=== PATIENT | female | born 1950 | race African-American/Black ===

== ENCOUNTER 2017-08-11 08:59 | Outpatient (CLI) | payer MEDICARE ==
--- NOTE | 2017-08-11 12:05 | CT ---
CT THORAX WITH IV CONTRAST: CT ABDOMEN AND PELVIS WITH IV CONTRAST: 08/11/2017 HISTORY: Non-Hodgkin's lymphoma. Left-sided abdominal pain. This is a follow-up evaluation. COMPARISON: PET CT examinations on 05/25/2016 and 12/23/2015, as well as a CT angiogram thorax on 11/26/2008. FINDINGS: THORAX: There are two pleural-based, 4 mm pulmonary nodules within the anterolateral aspect of the r ight upper lobe, with a 6 mm pulmonary nodule in the right lower lobe and very tiny, less than 4 mm, pulmonary nodules within the right middle lobe and in the left upper lobe. These pulmonary nodules w ere seen on a prior PET CT scan examination, as well as on the CT angiogram thorax on 11/26/2008, and have not increased in size. The instability since the study in 2008 suggests benign findings. No n ew pulmonary nodule or mass is appreciated. There is atelectasis at the posteromedial right lower lobe. The thoracic aorta is normal in caliber with vascular calcification seen in the aortic arch. The heart is mildly enlarged. There is no evidence of lymphadenopathy. Degenerative changes are seen in the spine. No lytic or sclerotic osseous lesions are present. ABDOMEN AND PELVIS: There is persistent inflammatory stranding seen within the central mesentery, wi th a few nonenlarged lymph nodes identified. There is a larger lymph node seen within the central me sentery, to the right of midline, measuring 2.3 cm, which has decreased in size, compared to PET CT o n 05/25/2016, when this measured 2.7 cm. This enlarged lymph node measured 3.6 cm on the prior study of 12/23/2015. No new enlarged lymph nodes are seen. There are stable, mildly prominent left peria ortic lymph nodes again present, stable compared to the studies in 2016 and 2015. Post cholecystectomy changes are noted. There is stable atrophy of the left kidney. The liver, spleen, pancreas, bilateral adrenal glands, and urinary bladder demonstrate a normal CT ap pearance. There is decreased attenuation seen centrally, within the uterus, which could be related to fluid in the endometrial canal. This would be abnormal in a patient of this age. Pelvic ultrasound may be he lpful for further evaluation. A moderate amount of retained fecal material is seen within the rectum. No enlarged pelvic lymph nodes are appreciated. No other interval change. IMPRESSION: 1. Continued interval decrease in size of the enlarged central mesenteric lymph node. There are mil dly prominent left periaortic and retrocrural lymph nodes again present, but these are also stable wh en compared to prior studies in 2017 and 2016. No new enlarged lymph nodes are seen. 2. Stable mild stranding in the central mesentery. 3. Mild cardiomegaly. 4. Stable pleural-based pulmonary nodules, right upper lobe, with stable pulmonary nodules in the ri ght lower lobe and left upper lobe. 5. Atrophy, left kidney. 6. Post cholecystectomy changes. 7. Decreased attenuation in the central uterus, which is nonspecific. This appeared to have been pr esent on the PET CT exam; however, no abnormal uptake was seen in this region. However, if this does represent fluid in the endometrial canal, this would be abnormal in a patient of this age. POS: [facility]
== END 2017-08-11 09:00 | disposition home or self-care (01) ==
LOC: CT 08:59
PROVIDERS: ATTEND Internal Medicine Hematology & Oncology
DX: C85.90 Non-Hodgkin lymphoma, unspecified, unspecified site (principal); N26.1 Atrophy of kidney (terminal); I51.7 Cardiomegaly; R91.8 Other nonspecific abnormal finding of lung field; Z90.49 Acquired absence of other specified parts of digestive tract
CPT/HCPCS: 71260; 74177; 82565

== ENCOUNTER 2017-09-01 08:43 | Outpatient (CLI) | payer MEDICARE | END 2017-09-01 08:44 | disposition home or self-care (01) | LOC: BICMAMMO 08:43 | PROVIDERS: ATTEND Family Medicine | DX: Z12.31 Encounter for screening mammogram for malignant neoplasm of breast (principal); Z85.72 Personal history of non-Hodgkin lymphomas | CPT/HCPCS: 77063; 77067 ==

== ENCOUNTER 2018-01-11 08:40 | Outpatient (CLI) | payer MEDICARE | END 2018-01-11 08:41 | disposition home or self-care (01) | LOC: BICCT 08:40 | PROVIDERS: ATTEND Internal Medicine Pulmonary Disease | DX: R91.8 Other nonspecific abnormal finding of lung field (principal) | CPT/HCPCS: 71260 ==

== ENCOUNTER 2018-02-09 12:44 | Outpatient (CLI) | payer MEDICARE ==
[~2018-02-09 12:44] MED LIST: Iopamidol 370 76% 100 ML VIAL ONE
--- NOTE | 2018-02-09 18:23 | CT ---
ABDOMEN CT WITHOUT CONTRAST PELVIC CT WITH AND WITHOUT CONTRAST CT ANGIOGRAM OF THE ABDOMEN 02/09/18 COMPARISON: 01/11/18, 08/11/17. HISTORY: Atrophic left kidney. CT angiogram of the descending thoracic aorta and abdominal aorta is performed in the axial plane. Th ree dimensional reformatted images are submitted for interpretation. FINDINGS: ABDOMEN CT: Lung bases are clear. Heart size is normal. No significant pericardial fluid. Liver, spleen, pancreas , and adrenal glands have appropriate arterial phase enhancement. Gallbladder is surgically absent. Scattered nonspecific mildly enlarged mesenteric lymph nodes. There is straightening of the central a bdominal mesentery similar to the previous examination. Stable focal soft tissue density in the centr al abdominal mesentery, once again measuring 2.0 x 1.3 cm. 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 The visualized alimentary canal is unremarkable. 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: The uterus and adnexal structures are unremarkable. No pelvic mass, lymphadenopathy or significant fr ee fluid. A small amount of free fluid is noted. There are no lytic or blastic lesions in the osseous structures. CT ANGIOGRAM: The descending thoracic aorta has the appropriate enhancement and luminal diameter. The celiac artery origin, superior mesenteric artery origin have appropriate enhancement and luminal diameter. There i s calcified plaque with associated mild to moderate stenosis involving the left renal artery ostium. There is decreased enhancement and luminal diameter of the left renal artery in its mid to distal asp ect. Left kidney is atrophic and there is decreased enhancement of the left kidney with respect to th e contralateral side. Nonspecific left perinephric lymph nodes. Bilaterally, no obstructive uropathy. Inferior mesenteric artery origin, aortic bifurcation, are unremarkable. Mild narrowing of the proxim al right common iliac artery due to atherosclerosis. The visualized external and internal iliac arter ies are patent. The visualized bilateral proximal lower extremity arteries are also patent. IMPRESSION: 1. Diminutive/atrophic left kidney. There is a small focus of calcified plaque with resultant mo derate stenosis involving the left renal artery ostium. There is decreased enhancement and luminal di ameter of the visualized left renal artery in its mid to proximal portion. Right renal artery is unre markable. 2. Unremarkable abdominal aorta. 3. Stable stranding of the abdominal mesentery with stable soft tissue attenuation which may rep resent area of scar. POS: [facility]
== END 2018-02-09 12:45 | disposition home or self-care (01) ==
LOC: BICCT 12:44
PROVIDERS: ATTEND Family Medicine
DX: Z13.820 Encounter for screening for osteoporosis (principal); N95.9 Unspecified menopausal and perimenopausal disorder; N26.1 Atrophy of kidney (terminal); M85.852 Other specified disorders of bone density and structure, left thigh; I70.1 Atherosclerosis of renal artery
CPT/HCPCS: 72191; 77080; 82565

== ENCOUNTER 2018-03-13 15:11 | Outpatient (CLI) | payer MEDICARE ==
[~2018-03-13 15:11] MED LIST changes: +Gadobenate Dimeglumine 529 MG/1 ML (20ML VIAL) ONE; -Iopamidol 370 76% 100 ML VIAL ONE
--- NOTE | 2018-03-13 18:21 | MRI ---
MRI LUMBAR SPINE WITH AND WITHOUT GADOLINIUM CONTRAST: Date: 03/13/18 HISTORY: Low back pain with left leg radiculopathy. FINDINGS: Conus medullaris has a normal appearance. Vertebral body heights are maintained. Discogenic end plate changes are most pronounced at the L4-5 level. T12-L1 and L1-2: Mild osteophytosis. The central canal and neural foramina are patent. L2-3: Desiccation of the disc and diffuse posterior disc bulge. Circumferential degenerative changes with mild stenosis of the central canal and each neural foramen. L3-4: Minimal disc bulge. Circumferential degenerative changes with mild stenosis of the central can al and each neural foramen. L4-5: Disc space narrowing. Minimal degenerative spondylolisthesis. Diffuse posterior disc protrusio n with prominent circumferential degenerative changes. Severe stenosis of the central canal and each neural foramen. L5-S1: Minimal disc bulge. Thecal sac is patent. Degenerative changes with mild right and severe lef t foraminal stenoses. IMPRESSION: Degenerative changes lower lumbar spine, including stenoses that are severe at the lowest two levels. Clinical correlation regarding signs and symptoms of central canal stenosis at the L4-5 level and fo raminal stenoses at the lowest two levels is required. POS: [facility]
== END 2018-03-13 15:12 | disposition home or self-care (01) ==
LOC: BICMRI 15:11
PROVIDERS: ATTEND Orthopaedic Surgery
DX: M47.26 Other spondylosis with radiculopathy, lumbar region (principal); M54.42 Lumbago with sciatica, left side; M48.061 Spinal stenosis, lumbar region without neurogenic claudication; M99.83 Other biomechanical lesions of lumbar region
CPT/HCPCS: 72158; 82565; A9579

== ENCOUNTER 2018-04-29 10:17 | Emergency (ER) | payer MEDICARE ==
[2018-04-29] MEDS ORDERED: Ibuprofen 200 MG TAB ONE (11:10)
--- NOTE | 2018-04-29 11:37 | RAD ---
THREE VIEWS LUMBAR SPINE: HISTORY: Lumbar spine pain. History of fall. FINDINGS: AP, lateral, and coned down views of the lumbar spine demonstrate 5 nonrib-bearing lumbar vertebrae. NO evidence of lumbar spine fracture is seen. Disk space height loss is seen at L4-5 and L5-S1. An terior osteophytes are seen involving the L2, L3, L4, and L5 levels. Findings compatible with changes of spondylosis. IMPRESSION: L4-5 and L5-S1 changes of spondylosis with a smaller anterior osteophyte seen at L2 and L3 levels. POS: [facility]
--- NOTE | 2018-04-29 11:39 | RAD ---
THREE VIEWS RIGHT SHOULDER: HISTORY: Right shoulder pain, fall. FINDINGS: AP internally, externally, and scapula-Y views of the right shoulder are obtained. Images demonstrate some degenerative changes seen in the right AC joint. The right shoulder is unremarkable. No evidence of fractures, subluxations, or bony lesions seen. IMPRESSION: Right acromioclavicular joint degenerative changes. Otherwise, unremarkable 3 views right shoulder. POS: [facility]
== END 2018-04-29 11:55 | disposition home or self-care (01) ==
LOC: ERS 10:17
DX: S46.911A Strain of unspecified muscle, fascia and tendon at shoulder and upper arm level, right arm, initial encounter (principal); M54.5 Low back pain; I10 Essential (primary) hypertension; F32.9 Major depressive disorder, single episode, unspecified; Z79.899 Other long term (current) drug therapy; Z79.82 Long term (current) use of aspirin; W19.XXXA Unspecified fall, initial encounter
CPT/HCPCS: 72100

== ENCOUNTER 2018-09-07 11:22 | Outpatient (CLI) | payer MEDICARE ==
--- NOTE | 2018-09-07 15:04 | MMO ---
Bilateral MAMMO Bilat Screen [facility]. CLINICAL HISTORY: Patient is 68 years old and is seen for screening. The patient has no family history of breast cancer. The patient has a history of hodgkin's disease. VIEWS: The views performed were: bilateral craniocaudal with tomosynthesis and bilateral mediolateral oblique with tomosynthesis. FILMS COMPARED: The present examination has been compared to prior imaging studies performed at [facility] on 09/01/2017, and at [facility] on 11/03/2010, 07/31/2014 and 07/27/2016. MAMMOGRAM FINDINGS: There are scattered fibroglandular densities. There are no suspicious masses, suspicious calcifications, or new areas of architectural distortion. IMPRESSION: THERE IS NO MAMMOGRAPHIC EVIDENCE OF MALIGNANCY. A ROUTINE FOLLOW-UP MAMMOGRAM IN 1 YEAR IS RECOMMENDED. THE RESULTS OF THIS EXAM WERE SENT TO THE PATIENT. ACR BI-RADS Category 1 - Negative MAMMOGRAPHY NOTE: 1. A negative mammogram report should not delay a biopsy if a dominant of clinically suspicious mass is present. 2. Approximately 10% to 15% of breast cancers are not detected by mammography. 3. Adenosis and dense breasts may obscure an underlying neoplasm.
== END 2018-09-07 11:23 | disposition home or self-care (01) ==
LOC: BICMAMMO 11:22
PROVIDERS: ATTEND Family Medicine
DX: Z12.31 Encounter for screening mammogram for malignant neoplasm of breast (principal); Z85.71 Personal history of Hodgkin lymphoma
CPT/HCPCS: 77063; 77067

== ENCOUNTER 2018-09-21 10:29 | Outpatient (CLI) | payer MEDICARE ==
[~2018-09-21 10:29] MED LIST changes: -Gadobenate Dimeglumine 529 MG/1 ML (20ML VIAL) ONE; +ISOVUE-370 76%-LOCM 1 ML ONE
--- NOTE | 2018-09-21 11:52 | CT ---
CONTRAST ENHANCED CT IMAGES OF THE ABDOMEN AND PELVIS: HISTORY: Patient with large B-cell lymphoma. COMPARISON: Comparison is made to previous exam from 08/11/2018. FINDINGS: Contrast-enhanced CT images of the abdomen and pelvis obtained after administration of IV and oral co ntrast. Small area of pleural nodular density seen in the right lower lobe. The gallbladder has been surgically removed. The liver is unremarkable. The spleen is unremarkable. The pancreas is unremarkable. Adrenal glands unremarkable. The right kidney is of normal size without evidence of significant masses. The left kidney is atroph ied, unchanged since the previous exam. There are central mesenteric areas of increased signal compatible with possible mesenteric inflammato ry or neoplastic involvement. This is stable and unchanged since the previous exam. The largest mes enteric lymph node noted previously measured approximately 2.3 cm has decreased in size measuring cecilio roximately 1.3 cm. No other significant evidence of lymphadenopathy is seen. No evidence of periaortic lymphadenopathy is seen. Multilevel lumbar changes of spondylosis and spinal stenosis seen. IMPRESSION: 1. Atrophied left kidney. 2. Mesenteric edema with some mildly enlarged mesenteric lymph nodes, the largest having decreased i n size when compared to the previous comparison exam from July 2017. POS: [facility]
== END 2018-09-21 10:30 | disposition home or self-care (01) ==
LOC: BICCT 10:29
PROVIDERS: ATTEND Internal Medicine Hematology & Oncology
DX: C83.38 Diffuse large B-cell lymphoma, lymph nodes of multiple sites (principal); R10.9 Unspecified abdominal pain; N26.1 Atrophy of kidney (terminal); R60.0 Localized edema; R59.0 Localized enlarged lymph nodes
CPT/HCPCS: 74177; 82565; Q9966

== ENCOUNTER 2019-02-14 09:14 | Outpatient (CLI) | payer MEDICARE ==
--- NOTE | 2019-02-14 10:16 | ULT ---
Abdominal ultrasound: 02/14/2019 COMPARISON: None HISTORY: Pain TECHNIQUE: Multiplanar grayscale sonographic imaging of the abdomen obtained. FINDINGS: The pancreas is not well seen secondary to bowel gas. The gallbladder is surgically absent. No focal liver lesion is apparent. The common bile duct measures approximately 5 mm, within normal limits. The right kidney measures 11.6 cm in craniocaudal dimension and demonstrates no evidence for stone, h ydronephrosis, or mass lesion. Left kidney is atrophic, measuring 7.8 cm in craniocaudal dimension. The putty maker documented a hypoechoic lesion within the lateral aspect of the left kidney measuring approximately 2.1 x 1.7 x 1.7 cm. However, no such lesion is seen on a CT of the abdomen and pelvis performed 09/21/2018. This could best be artifactual in nature or could represent a new mass wit hin the left kidney. Recommend follow-up CT of the abdomen with and without IV contrast for further assessment. The spleen measures up to approximately 7.8 cm, within normal limits. IMPRESSION: Possible new hypoechoic lesion within the left kidney. Follow-up CT is advised as teofilo jacobo above.
--- NOTE | 2019-02-14 10:37 | ULT ---
TRANSABDOMINAL TRANSVAGINAL PELVIC ULTRASOUND DATE:: 02/14/2019 12:00 AM CLINICAL HISTORY: History of pelvic pain. COMPARISON: April 11, 2003 TECHNIQUE: Grayscale, color Doppler and spectral Doppler images were obtained of the pelvis see a tra nsabdominal transvaginal approach Uterus: Size: 6.6 x 3.6 x 4.2 Mass: No uterine mass is demonstrated. Cervix: Within normal limits Endometrium: There is marked thickening of the endometrium with heterogeneity. Endometrial Thickness: 15 mm Ovaries: Size: right measures 2.5 x 1.0 x 2.1 cm; left measures 2.0 x 1.1 x 1.1 cm Mass: None. Flow: Normal Cul-de-sac: No free fluid IMPRESSION: Abnormal thickening of the endometrial stripe with prominent heterogeneity of the endometrial tissues . Findings may reflect hyperplasia, polyposis or carcinoma. Recommend consideration for endometrial sampling.
== END 2019-02-14 09:15 | disposition home or self-care (01) ==
LOC: BICULT 09:14
PROVIDERS: ATTEND Family Medicine
DX: R10.2 Pelvic and perineal pain (principal); R93.89 Abnormal findings on diagnostic imaging of other specified body structures
CPT/HCPCS: 76700; 76856

== ENCOUNTER 2019-03-02 08:58 | Outpatient (CLI) | payer MEDICARE ==
--- NOTE | 2019-03-02 09:52 | ULT ---
US Abdominal History: Abdominal pain Comparison: Ultrasound February 14, 2019 Findings: Real-time grayscale and color evaluation of the abdomen was performed. Visualized portion of the aorta, IVC, and pancreas are unremarkable. No hepatic mass. Prior cholecystectomy. Common bile duct measures 5 mm, normal. Antegrade flow in the portal vein. Mild diffuse increased hepatic echotexture. Right kidney measures 12 x 7 x 6.2 cm without mass hydronephrosis or abnormal calcifications. There i s a mass in the posterior interpolar cortex left kidney measuring up to 2 cm in size which on some views is not definitively a cyst. Left kidney is relatively small measuring 8.3 x 3.2 x 3.6 cm. Spleen measures 7.8 cm in length. Impression: 2 cm mass of the left kidney which on some of the images not definitively a cyst and conc erning for neoplasm. No cyst is seen on recent CT exam. Dedicated renal protocol MRI recommended.
== END 2019-03-02 08:59 | disposition home or self-care (01) ==
LOC: BICULT 08:58
PROVIDERS: ATTEND Family Medicine
DX: R10.9 Unspecified abdominal pain (principal); N28.89 Other specified disorders of kidney and ureter
CPT/HCPCS: 76700

== ENCOUNTER 2019-03-27 13:09 | Outpatient (CLI) | payer MEDICARE ==
[~2019-03-27 13:09] MED LIST changes: +Gadobenate Dimeglumine 529 MG/1 ML (20ML VIAL) ONE; -ISOVUE-370 76%-LOCM 1 ML ONE
--- NOTE | 2019-03-27 15:38 | MRI ---
MRI ABDOMEN WITH AND WITHOUT IV CONTRAST: 03/27/19 HISTORY: Left renal mass. FINDINGS: The left kidney is atrophic. There is a 2 cm heterogeneously enhancing mass with increased T2 signal arising from the posterior cortex of the atrophic left kidney suspicious for malignancy. The right kidney, liver, pancreas, spleen, and adrenal glands appear normal. The patient is post chol ecystectomy. No free fluid or lymphadenopathy is seen. There is no evidence of aneurysmal dilatation of the abdomi nal aorta. The bone marrow signal is normal. No renal vein thrombosis is seen. IMPRESSION: 2 cm heterogeneously enhancing mass in the atrophic left kidney suspicious for malignancy. POS: [facility]
== END 2019-03-27 13:10 | disposition home or self-care (01) ==
LOC: BICMRI 13:09
PROVIDERS: ATTEND Family Medicine
DX: N28.89 Other specified disorders of kidney and ureter (principal); N26.1 Atrophy of kidney (terminal)
CPT/HCPCS: 74183; 82565; A9577

== ENCOUNTER 2019-05-03 07:17 | Day surgery (SDC) | payer MEDICARE ==
[2019-05-02 14:28] VITALS: BMI 35.6
[2019-05-03 07:37] LABS: #Eosinphils 0.4 thou/uL (0.0-0.7); #Lymphocytes 3.3 thou/uL (1.20-3.40); #Monocytes 0.4 thou/uL (0.11-0.59); #Neutrophils 5.3 thou/uL (1.40-6.50); %Basophils 0.3 % (0.0-1.0); %Eosinophils 4.3 % (0.0-10.0); %Lymphocytes 34.6 % (21.0-51.0); %Monocytes 4.6 % (0.0-10.0); %Neutrophils 56.1 % (42.0-75.0); Hemoglobin 12.4 g/dL (12.0-16.0); Mean Corpuscular HGB CONC 33.2 g/dL (32.0-36.0); Mean Corpuscular Hemoglobin 29.9 pg (27.0-31.0); Mean Corpuscular Volume 90.1 fL (78.0-98.0); Mean Platelet Volume 6.9 fL (7.4-10.4); Platelet Count 213 thou/uL (130-400); RBC Distribution Width 12.9 % (11.5-14.5); Red Blood Cell (RBC) Count 4.14 mill/uL (4.20-5.40); White Blood Cell (WBC) Count 9.5 thou/uL (4.8-10.8)
[2019-05-03 07:46] LABS: Prothrombin Time 13.3 SEC (12.0-14.7)
[2019-05-03 10:52] VITALS: BP 153/66; TEMP 98.2
--- NOTE | 2019-05-03 10:52 | CT ---
CT GUIDED PERCUTANEOUS BIOPSY OF A LEFT RENAL MASS: COMPARISON: 09/21/2018. CORRELATION: Abdomen MRI 03/27/2019. FINDINGS: Appropriate positioning of the metallic trocar. Total of four 18-gauge core biopsy samples were obtai az. The pathologist reports renal tissue and fibrotic tissue. Atypical cells were not appreciated. Blood products were present. TECHNIQUE: Consent was obtained to perform a CT-guided biopsy of the left kidney. Patient was placed in a prone position on the CT gantry. Left kidney was identified. Skin was prepped and draped in a sterile fashion. 1% lidocaine, buffered with sodium bicarbonate was used for local anesthesia. Under CT carolyn nce, an 18-gauge metallic trocar was advanced such that the trocar was within the exophytic left renal lesion. A total of four 18-gauge core biopsy samples were obtained. There were no immediate or postprocedure complications. Postprocedure images demonstrate expected post biopsy changes involving the exophytic mass. Multiple foci of air within the mass are noted. Given that the needle w as appropriately positioned and only a scant amount of tissue and predominantly blood products are being obtained by biopsy, additional lesions were not obtained at this time. CONSCIOUS SEDATION: 0.5 mg Versed intravenous. 50 mcg fentanyl intravenous. IMPRESSION: Successful attempt of a CT-guided biopsy involving an exophytic mass in the left kidney. Final pathol ogic diagnosis pending. Transcribed Date/Time: 05/03/2019 10:57 AM
== END 2019-05-03 11:45 | disposition home or self-care (01) ==
LOC: CT 07:17
PROVIDERS: ATTEND Urology
PROC: 0TB13ZX Excision of Left Kidney, Percutaneous Approach, Diagnostic (ICD-10-PCS; principal; 2019-05-03)
DX: C64.2 Malignant neoplasm of left kidney, except renal pelvis (principal); F32.9 Major depressive disorder, single episode, unspecified; M19.90 Unspecified osteoarthritis, unspecified site; G89.29 Other chronic pain; M54.9 Dorsalgia, unspecified; G47.33 Obstructive sleep apnea (adult) (pediatric); J45.909 Unspecified asthma, uncomplicated; K21.9 Gastro-esophageal reflux disease without esophagitis; I25.10 Atherosclerotic heart disease of native coronary artery without angina pectoris; E66.01 Morbid (severe) obesity due to excess calories; Z68.35 Body mass index [BMI] 35.0-35.9, adult; Z85.72 Personal history of non-Hodgkin lymphomas; Z79.82 Long term (current) use of aspirin; Z79.899 Other long term (current) drug therapy
CPT/HCPCS: 50200; 77012; 85025; 85610; 85730; 88305; 88333; 88334

== ENCOUNTER 2019-07-20 11:12 | Outpatient (CLI) | payer MEDICARE ==
--- NOTE | 2019-07-20 15:20 | NM ---
RENAL SCAN: INDICATION: Malignant neoplasm of left kidney. TECHNIQUE: The patient was given 8 mCi of Technetium labeled MAG-3 IV. Renal scan performed according to protoc ol. FINDINGS: Blood flow images show activity in the right kidney which appears normal. No blood flow activity is seen in the left kidney. On delayed images, there is minimal activity in the atrophic left kidney. Normal blood flow and wash out in the right kidney. SPLIT FUNCTION: Left: 4%. Right: 96%. POS: [facility]
== END 2019-07-20 11:13 | disposition home or self-care (01) ==
LOC: NM 11:12
PROVIDERS: ATTEND Urology
DX: C64.2 Malignant neoplasm of left kidney, except renal pelvis (principal); N26.1 Atrophy of kidney (terminal)
CPT/HCPCS: 78707; A9562

== ENCOUNTER 2019-08-08 11:30 | Inpatient (IN) | payer MEDICARE, OTHER ==
[2019-10-16 09:31] VITALS: BMI 35.2
[2019-10-16 11:39] LABS: Hemoglobin 12.4 g/dL (12.0-16.0); Mean Corpuscular HGB CONC 32.1 g/dL (32.0-36.0); Mean Corpuscular Hemoglobin 29.4 pg (27.0-31.0); Mean Corpuscular Volume 91.6 fL (78.0-98.0); Mean Platelet Volume 7.8 fL (7.4-10.4); Platelet Count 199 thou/uL (130-400); Red Blood Cell (RBC) Count 4.22 mill/uL (4.20-5.40); White Blood Cell (WBC) Count 10.7 thou/uL (4.8-10.8)
[2019-10-16 11:45] LABS: Prothrombin Time 12.8 sec (12.0-14.7)
[2019-10-16 11:46] LABS: PTT 29.3 sec (22.9-36.1)
[2019-10-16 11:53] LABS: Bilirubin Negative (Negative); Blood, Urine Negative (Negative); Clarity Clear (Clear); Glucose, Urine (Dipstick) Normal (Negative); Leukocyte Negative Leu/uL (Negative); Nitrite Negative (Negative); Protein, Urine (Dipstick) 20 mg/dL (Neg-Trace); RBC/HPF 0-3 HPF (0-3); Urobilinogen Normal mg/dL (Less than 2); WBC/HPF 0-3 HPF (0-3)
[2019-10-16 11:55] LABS: Bacteria/HPF 1+ HPF (None Seen)
[2019-10-16 11:58] LABS: Anion Gap 12 mmol/L (10-20); BUN (Urea Nitrogen) 12 mg/dL (9.8-20.1); Calc. Creatinine Clearance 0 mL/min (70-130); Calcium 9.2 mg/dL (7.8-10.44); Carbon Dioxide 28 mmol/L (23-31); Chloride 103 mmol/L (98-107); Estimated GFR-MDRD 72; Glucose 89 mg/dL (80-115); Potassium 3.4 mmol/L (3.5-5.1); Sodium 140 mmol/L (136-145)
[2019-10-16 17:45] LABS: SARS-CoV-2 MS2 Positive; SARS-CoV-2 N Gene Negative; SARS-CoV-2 S Gene Negative; SARS-CoV-2 orf1ab Negative
[2019-10-18] MEDS ORDERED: Fentanyl 100 MCG/2 ML VIAL ONE ×3 (06:57→13:57)
[2019-10-18] MEDS ORDERED: Midazolam HCl 2 mg/2 ml Vial ONE (06:57)
[2019-10-18] MEDS ORDERED: Bupivacaine 0.25% HCL 30 ML VIAL ONE ×2 (06:59→07:31)
[2019-10-18] MEDS ORDERED: EPINEPHrine 1 MG/ML AMP ONE (06:59)
[2019-10-18] MEDS ORDERED: Phenylephrine 10 MG/ML VIAL ONE (07:31)
[2019-10-18] MEDS ORDERED: Acetaminophen 500 MG TAB PO PRN (08:09)
[2019-10-18] MEDS ORDERED: Hydrocerin (Eucerin) Cream 120 gm Jar TOP PRN (08:15)
[2019-10-18] MEDS ORDERED: Ondansetron PF 4 MG/2 ML Vial IVP PRN (08:15)
[2019-10-18] MEDS ORDERED: diphenhydrAMINE 50 MG/ML VIAL IM PRN (08:15)
[2019-10-18] MEDS ORDERED: HYDROcodone/Acetaminophen 5/325 mg Tablet PO PRN (08:15)
[2019-10-18] MEDS ORDERED: Promethazine HCl 25 MG SUPP PR PRN (08:15)
[2019-10-18] MEDS ORDERED: Zolpidem Tartrate 5 MG TAB PO PRN (08:15)
[2019-10-18] MEDS ORDERED: Promethazine HCl 25 MG/ML VIAL IM PRN ×2 (08:15→11:10)
[2019-10-18] MEDS ORDERED: Naloxone HCl 0.4 mg/ml Vial IV PRN (08:15)
[2019-10-18] MEDS ORDERED: diphenhydrAMINE 25 MG CAP PO PRN (08:15)
[2019-10-18] MEDS ORDERED: traMADol HCl 50 MG TAB PO PRN ×2 (08:15)
[2019-10-18] MEDS ORDERED: diphenhydrAMINE 50 MG/ML VIAL IVP PRN (08:15)
[2019-10-18] MEDS ORDERED: Bupivacaine 0.25% 10 ML VIAL EPIDURAL PRN (08:15)
[2019-10-18] MEDS ORDERED: Naloxone HCl 0.4 mg/ml Vial IVP PRN (08:15)
[2019-10-18] MEDS ORDERED: Promethazine HCl 25 MG/ML VIAL SLOW IVP PRN (11:10)
[2019-10-18] MEDS ORDERED: Ondansetron HCl/PF 4 MG/2 ML Vial IVP PRN (11:10)
[2019-10-18] MEDS ORDERED: PACU-Morphine 4MG/ML VIAL SLOW IVP PRN (11:10)
[2019-10-18] MEDS ORDERED: HYDROmorphone 2 MG/ML VIAL SLOW IVP PRN (11:10)
--- NOTE | 2019-10-18 13:24 | OP ---
DATE OF PROCEDURE: 10/18/2019 SERVICE: Urology. SURGEON: Sushant Alamo MD ASSISTING SURGEON: Jenae Becker DO PREOPERATIVE DIAGNOSIS: Left renal cell carcinoma. POSTOPERATIVE DIAGNOSIS: Left renal cell carcinoma. PROCEDURE PERFORMED: Left retroperitoneal laparoscopic nephrectomy, converted to an open retroperitoneal nephrectomy. INDICATIONS FOR PROCEDURE: Ms. Stokes is a 69-year-old black female who initially presented to me with a left renal mass in the setting of a history of lymphoma, although this was suspicious for renal cell carcinoma. We went ahead and performed a renal biopsy, which demonstrated renal cell carcinoma and an atrophic left kidney. Given that the kidney was relatively nonfunctional on nuclear imaging, I recommended that we consider a radical nephrectomy since the kidney was generally not functioning much. Risks and benefits of the surgery were discussed and she has agreed to proceed forward. DESCRIPTION OF PROCEDURE: After identification of armband and verification of consent, the patient was brought back to the operating room where she underwent general anesthesia with endotracheal intubation. She had an epidural placed preoperatively and a Mackenzie catheter placed intraoperatively. She was then placed in the right lateral decubitus position in the full flank with the bed flexed and all pressure points padded and axillary roll placed. She was then prepped and draped in the usual sterile fashion. After appropriate time-out, a small incision was made with an 11 blade just 1 fingerbreadth below the tip of the 12th rib, approximately 1.5 cm. Dissection was then carried down with S retractor through the fascia and into the retroperitoneal space. Using digital dissection, a finger was used to sweep on the psoas muscle behind the kidney until there was an adequate space to bring in a spacemaker balloon. The spacemaker was then inserted and instilled with 40 pumps of air under direct visualization and the psoas tendon could be identified, indicating good positioning. Additional ports were placed with a 12 mm port at the right costophrenic angle, a 5-mm port at the left angle between the lumbodorsal muscles and the posterior superior iliac spine, and an additional 5-mm port placed anteriorly into the retroperitoneum, taking care to avoid the peritoneal cavity. Using a self-retaining S retractor, this was used to gently hold the kidney up while dissection was performed along the psoas muscle. Dissection was then carried out along the psoas muscle laparoscopically using a combination of the hook monopolar retractor suction and LigaSure. Unfortunately, due to an immense amount of fat around the kidney with an atrophic kidney, scarring, and difficult with maneuverability, I was not able to make much progress out of concern for possible vascular injury to the renal hilum. With difficulty with the dissection, I elected ultimately to perform an open surgery instead of continuing laparoscopically as progress was not being made sufficiently and there was too much concern for a renal hilar injury or great vessel injury. As such, the ports were removed and a 10 blade was used to make an incision, connecting the camera port to the posterior 12-mm port and then extending slightly beyond the anterior 5-mm port anteriorly to make an adequate incision. Dissection was then carried down with Bovie electrocautery until the retroperitoneal space was entered. The Bookwalter was then affixed and dissection was then carried out in an open fashion. The ureter was identified along with the gonadal vein. The kidney was dissected away from all of its lienorenal and surrounding ligaments and attachments. There was noted to be air in the peritoneal cavity, but this was likely diffusion from insufflation. I decided I would inspect the peritoneal cavity at the end of the case to make sure there was not a bowel injury. Once the kidney was dissected circumferentially, a lot of the fat had to be removed and sent separately since there was an immense amount of fat that precluded proper visualization and mobilization of the kidney. Once the hilum was isolated into a stalk, a 60-mm vascular loaded stapler was put across the hilum and stapled, and in 2 fires, the entire hilum was completely divided along with the surrounding fat. The ureter was tied off with 2-0 silk ties and then divided. The kidney was then sent off with the rest of the perinephric fat for routine pathologic evaluation. The retroperitoneal space was then evaluated and there did not appear to be any significant bleeding. There was mild oozing from the superior anterior aspect in the estimated location of the adrenal gland. It was extremely mild and I did not feel that it would necessitate any suture ligation. We elected to place FloSeal. Before we did this, we opened the peritoneal cavity and inspected the descending colon along with the bowel. The descending colon was inspected all the way through the sigmoid colon close to the rectum along with multiple bowel loops and there was no identifiable vascular or bowel injury. The peritoneum was then closed using a running 2-0 Vicryl and then the retroperitoneal space was irrigated with sterile water that was warmed. Once this was irrigated out, FloSeal was applied into the retroperitoneal space in the area of mild oozing, and then the bowel contents and fat allowed to fall over this. Due to significant amount of stickiness and the concern about whether or not there was any kind of phlegmon or any type of infection, I did elect to leave a drain since there was so much scarring around the kidney. It was not likely there was any infection present, but this was more of a safety precaution. Using the anterior 5-mm drain site, this was used to create a new tract into the retroperitoneal space, and using a tonsil, a #19 SERG drain was brought in and placed in the retroperitoneum. This was secured with a 3-0 nylon. The retroperitoneal space was then closed in 2 layers of PDS on the transversalis and internal oblique fascia. The external oblique fascia and aponeurosis were then closed using a separate #1 PDS. Deana was applied along the fat and then the skin was closed with a 4-0 Monocryl in a subcuticular fashion along with the 1 additional port at the posterior superior iliac spine. Dermabond was applied. At the end of the case, the patient had her bulb fixed to the SERG suction, was taken out of positioning back to the supine position, extubated, awakened, and taken to PACU for recovery in stable condition. COMPLICATIONS: None. ESTIMATED BLOOD LOSS: 100 mL. RETAINED TUBES AND DRAINS: A #19 SERG drain, 16-Telugu Mackenzie catheter, and epidural. SPECIMENS: Left kidney and proximal ureter. DISPOSITION: The patient will be admitted to the hospital for postoperative recovery. She will have her epidural removed in the hospital along with the catheter and drain. Once she has fully recovered, we will discharge her and handle her cancer surveillance on an outpatient basis. Job ID: [id number] [facility]
[2019-10-18] MEDS ORDERED: Glycopyrrolate 0.2 MG/ML 5 ML SYRINGE ONE (13:42)
[2019-10-18] MEDS ORDERED: EPHEDRINE 25 MG/5 ML SYRINGE ONE (13:42)
[2019-10-18] MEDS ORDERED: Rocuronium Bromide 10 MG/ML (10ML VIAL) ONE (13:42)
[2019-10-18] MEDS ORDERED: Ondansetron PF 4 MG/2 ML Vial ONE (13:42)
[2019-10-18] MEDS ORDERED: PROPOFOL 200 MG/20 ML VIAL ONE (13:42)
[2019-10-18] MEDS ORDERED: Lidocaine 1% PF 5 ML VIAL ONE (13:42)
[2019-10-18 14:41] LABS: Hemoglobin 11.6 g/dL (12.0-16.0); Mean Corpuscular HGB CONC 30.1 g/dL (32.0-36.0); Mean Corpuscular Hemoglobin 28.4 pg (27.0-31.0); Mean Corpuscular Volume 94.4 fL (78.0-98.0); Mean Platelet Volume 8.3 fL (7.4-10.4); Platelet Count 193 thou/uL (130-400); RBC Distribution Width 13.1 % (11.5-14.5); Red Blood Cell (RBC) Count 4.09 mill/uL (4.20-5.40); White Blood Cell (WBC) Count 13.4 thou/uL (4.8-10.8)
[2019-10-18] MEDS ORDERED: Bisacodyl 10 MG SUPP PR PRN (14:42)
[2019-10-18] MEDS ORDERED: Oxybutynin 5 MG TAB PO PRN (14:42)
[2019-10-18] MEDS ORDERED: hydrALAZINE 20 MG/ML VIAL SLOW IVP PRN (14:42)
[2019-10-18] MEDS ORDERED: Mag-Al 1200 mg/1200 mg/30 ML UDCUP PO PRN (14:42)
--- NOTE | 2019-10-18 14:42 | RAD ---
Exam: Chest one view HISTORY:Evaluate for left-sided pneumothorax Comparison: 10/16/2019 FINDINGS: Cardiac silhouette:Upper normal cardiac silhouette Aorta: Stable atherosclerosis Pulmonary vessels: Normal Costophrenic angles: Clear LUNGS: No masses or consolidation. Pneumothorax: None Osseous abnormalities: None Pneumoperitoneum: There is free air underneath the right hemidiaphragm. IMPRESSION: 1. No pneumothorax 2. Free air underneath the right hemidiaphragm. Results of study discussed with Dr. Alamo 10/10/2019 2:38 PM code CR
[2019-10-18] MEDS ORDERED: Lidocaine 1.5% w/Epi 1:200K 30 ML VIAL (Epid Use) ONE (14:44)
[2019-10-18 15:01] LABS: Anion Gap 13 mmol/L (10-20); BUN (Urea Nitrogen) 13 mg/dL (9.8-20.1); Calc. Creatinine Clearance 85 mL/min (70-130); Calcium 8.4 mg/dL (7.8-10.44); Carbon Dioxide 24 mmol/L (23-31); Chloride 106 mmol/L (98-107); Estimated GFR-MDRD 72; Glucose 140 mg/dL (80-115); Potassium 3.6 mmol/L (3.5-5.1); Sodium 139 mmol/L (136-145)
[2019-10-18] MEDS ORDERED: Albuterol Sulfate 2.5 mg/3 ml Neb NEB PRN (15:30)
[2019-10-18] MEDS: HYDROcodone/Acetaminophen 5/325 mg Tablet PO PRN (19:38)
[2019-10-18] MEDS: Docusate 100 MG CAP PO SCH (19:42)
[2019-10-18] MEDS: Gabapentin 300 MG CAP PO SCH (19:43)
[2019-10-18] MEDS: Simvastatin 5 MG TAB PO SCH (19:43)
[2019-10-18] MEDS: Magnesium Oxide 400 MG TAB PO SCH (19:43)
[2019-10-18] MEDS: Sodium Chloride 0.9% 1,000 ML IV SCH (19:47)
[2019-10-18] MEDS: CEFAZOLIN 1 GM in Sodium Chloride 0.9% 100 ML IVPB SCH (21:51)
[2019-10-19] MEDS: fentaNYL Citrate/PF 500 MCG, Bupivacaine 10 ML in Sodium Chloride 0.9% 80 ML EPIDURAL SCH ×2 (00:15→14:26)
[2019-10-19] MEDS: HYDROcodone/Acetaminophen 5/325 mg Tablet PO PRN ×2 (00:25→05:55)
[2019-10-19] MEDS: Sodium Chloride 0.9% 1,000 ML IV SCH ×2 (03:37→17:02)
[2019-10-19 05:25] LABS: #Eosinphils 0.1 thou/uL (0.0-0.7); #Lymphocytes 1.7 thou/uL (1.20-3.40); #Monocytes 0.7 thou/uL (0.11-0.59); #Neutrophils 7.8 thou/uL (1.40-6.50); %Basophils 0.3 % (0.0-1.0); %Eosinophils 1.1 % (0.0-10.0); %Lymphocytes 16.6 % (21.0-51.0); %Monocytes 6.4 % (0.0-10.0); %Neutrophils 75.6 % (42.0-75.0); Hemoglobin 11.1 g/dL (12.0-16.0); Mean Corpuscular HGB CONC 30.1 g/dL (32.0-36.0); Mean Corpuscular Hemoglobin 28.9 pg (27.0-31.0); Mean Corpuscular Volume 95.9 fL (78.0-98.0); Mean Platelet Volume 7.8 fL (7.4-10.4); Platelet Count 180 thou/uL (130-400); RBC Distribution Width 13.2 % (11.5-14.5); Red Blood Cell (RBC) Count 3.86 mill/uL (4.20-5.40); White Blood Cell (WBC) Count 10.3 thou/uL (4.8-10.8)
[2019-10-19 05:44] LABS: Anion Gap 10 mmol/L (10-20); BUN (Urea Nitrogen) 9 mg/dL (9.8-20.1); Calc. Creatinine Clearance 99 mL/min (70-130); Carbon Dioxide 28 mmol/L (23-31); Chloride 103 mmol/L (98-107); Estimated GFR-MDRD 85; Glucose 109 mg/dL (80-115); Potassium 3.6 mmol/L (3.5-5.1); Sodium 137 mmol/L (136-145)
[2019-10-19] MEDS: CEFAZOLIN 1 GM in Sodium Chloride 0.9% 100 ML IVPB SCH ×2 (05:55→13:49)
[2019-10-19] MEDS ORDERED: Amlodipine 10 MG TAB PO SCH (09:00)
[2019-10-19] MEDS ORDERED: Hydrochlorothiazide 25 MG TAB PO SCH (09:00)
[2019-10-19] MEDS: Docusate 100 MG CAP PO SCH ×2 (10:09→21:04)
[2019-10-19] MEDS ORDERED: Albuterol Sulfate 2.5 mg/3 ml Neb NEB SCH (14:30)
[2019-10-19] MEDS ORDERED: Sodium Chloride 0.9% 500 ML IV SCH (16:30)
[2019-10-19] MEDS: Acetaminophen 500 MG TAB PO SCH ×2 (17:22→23:41)
--- NOTE | 2019-10-19 19:00 | PRG ---
DATE OF SERVICE: 10/19/2019 SUBJECTIVE: The patient is having some pain today. It is not terrible. Her epidural has been working well. However, she has been having some issues with hypotension as well as some shortness of breath, especially when trying to stand up. She states that she does have a mild appetite, but otherwise denies any nausea or vomiting. No bowel movement or flatus yet. OBJECTIVE: VITAL SIGNS: Temperature 98.3, pulse 58, respirations 12, blood pressure 87/52, saturation 99% on 2 L nasal cannula. GENERAL: No apparent distress, somewhat somnolent. CARDIOVASCULAR: Regular rate and rhythm. ABDOMEN: Soft, nontender, and nondistended. Positive bowel sounds. Incision dressed. SERG with serosanguineous fluid. : Mackenzie catheter in place with clear yellow urine. EXTREMITIES: No clubbing, cyanosis, or edema. LABORATORY EVALUATION: Full set of labs are in the [facility] system, which I have reviewed. Of note, the patient's white count is 10.3, hemoglobin 11.1. Creatinine of 0.81. ASSESSMENT AND PLAN: A 69-year-old black female with left renal cell carcinoma, status post left nephrectomy, laparoscopic converted to open, with low blood pressure and shortness of breath, which is likely secondary to possible underlying asthma as well as excessive narcotic usage. At the current time, I would recommend giving her another bolus of fluid to increase her blood pressure, minimizing her epidural dosing, and try to minimize narcotic usage while increasing Tylenol usage. I have discussed this with the Pain Management team and they will make the appropriate changes. Since her hemoglobin is stable, I will start her on Lovenox. She can advance her diet as tolerated to a regular diet. We will hold her antihypertensives at the current time given that she is still slightly hypotensive and I have told her that she should attempt to hydrate p.o. rather than through IV fluids. She has sat in a chair today and I will have her try to walk tomorrow. Dr. Edson Oliva will be covering this weekend and I will sign out to him and I will resume care on Tuesday. Job ID: [id number] [facility]
[2019-10-19] MEDS: Enoxaparin Sodium 40 MG/0.4 ML SYRINGE SC SCH (21:03)
[2019-10-19] MEDS: Gabapentin 300 MG CAP PO SCH (21:04)
[2019-10-19] MEDS: Simvastatin 5 MG TAB PO SCH (21:05)
[2019-10-19] MEDS: Magnesium Oxide 400 MG TAB PO SCH (21:06)
[2019-10-20] MEDS: Acetaminophen 500 MG TAB PO SCH ×3 (05:24→18:16)
[2019-10-20 06:35] LABS: #Eosinphils 0.2 thou/uL (0.0-0.7); #Lymphocytes 2.4 thou/uL (1.20-3.40); #Monocytes 0.6 thou/uL (0.11-0.59); #Neutrophils 5.7 thou/uL (1.40-6.50); %Basophils 0.1 % (0.0-1.0); %Eosinophils 2.4 % (0.0-10.0); %Lymphocytes 26.8 % (21.0-51.0); %Neutrophils 63.6 % (42.0-75.0); Hemoglobin 9.6 g/dL (12.0-16.0); Mean Corpuscular HGB CONC 32.5 g/dL (32.0-36.0); Mean Corpuscular Hemoglobin 30.8 pg (27.0-31.0); Mean Corpuscular Volume 94.8 fL (78.0-98.0); Mean Platelet Volume 8.3 fL (7.4-10.4); Platelet Count 145 thou/uL (130-400); RBC Distribution Width 12.8 % (11.5-14.5); Red Blood Cell (RBC) Count 3.13 mill/uL (4.20-5.40); White Blood Cell (WBC) Count 8.9 thou/uL (4.8-10.8)
[2019-10-20 06:56] LABS: Anion Gap 9 mmol/L (10-20); BUN (Urea Nitrogen) 8 mg/dL (9.8-20.1); Calc. Creatinine Clearance 94 mL/min (70-130); Calcium 7.3 mg/dL (7.8-10.44); Carbon Dioxide 29 mmol/L (23-31); Chloride 103 mmol/L (98-107); Estimated GFR-MDRD 81; Glucose 111 mg/dL (80-115); Potassium 3.5 mmol/L (3.5-5.1); Sodium 137 mmol/L (136-145)
[2019-10-20] MEDS: Docusate 100 MG CAP PO SCH ×2 (08:16→19:45)
--- NOTE | 2019-10-20 13:09 | PRG ---
DATE OF SERVICE: 10/20/2019 SUBJECTIVE: The patient is doing fine. Her pain is not bad. It is relatively well controlled. She has had no further episodes of shortness of breath. She has not required any nebulizer treatments yesterday. She has been using her incentive spirometer. She did attempt to walk, but became dizzy and lightheaded and felt her legs were weak, so she ended up sitting back down. She has been up in a chair. She has been tolerating Jell-O and clear liquids, but otherwise has not tried any regular food. She has not had a bowel movement. She is not nauseated. Denies any chest pain, shortness of breath, or vomiting. OBJECTIVE: VITAL SIGNS: Temperature 98.3, pulse 58, respirations 12, blood pressure 94/55, and saturations 100% on 2 L nasal cannula. GENERAL: Somnolent, but answering questions appropriately, communicative. CARDIOVASCULAR: Sinus bradycardia. Normal S1 and S2. ABDOMEN: Soft, nontender, and nondistended. Positive bowel sounds. Dressing was removed today. Incision is clean, dry, and intact. SERG drain, serosanguineous. GENITOURINARY: Mackenzie catheter in place with clear yellow urine. BACK: Epidural in place without any signs of cellulitis or infection. EXTREMITIES: No clubbing, cyanosis, or edema. DIAGNOSTIC DATA: On laboratory evaluation, a full set of labs are in the [employer] [facility], which I have reviewed. Of note, the patient's white count is 8.9, hemoglobin 9.6. Creatinine is 0.85. ASSESSMENT AND PLAN: A 69-year-old black female with Benjamin grade 1 left renal cell carcinoma, status post open retroperitoneal nephrectomy postop day 2. She appears to be progressing relatively well. I did tell her to go ahead and eat a regular diet today. She could try walking again, but only with assistance. If she feels her legs are weaker, she is dizzy, then at least sit in a chair. I would like to try and have the epidural removed tomorrow. We have agreed that they can stay in today, but I would like to keep the basal rate down around 4 or so. I told her that she should start transitioning to oral pain medication afterwards. The Mackenzie catheter can be removed once the epidural is removed tomorrow. I will see the patient again on Tuesday. Dr. Oliva will be available tomorrow for any issues. Job ID: [id number]
[2019-10-20] MEDS: fentaNYL Citrate/PF 500 MCG, Bupivacaine 10 ML in Sodium Chloride 0.9% 80 ML EPIDURAL SCH (16:06)
[2019-10-20] MEDS: Magnesium Oxide 400 MG TAB PO SCH (19:45)
[2019-10-20] MEDS: Gabapentin 300 MG CAP PO SCH (19:45)
[2019-10-20] MEDS: Simvastatin 5 MG TAB PO SCH (19:45)
[2019-10-20] MEDS: Enoxaparin Sodium 40 MG/0.4 ML SYRINGE SC SCH (19:45)
[2019-10-21] MEDS: Acetaminophen 500 MG TAB PO SCH ×4 (01:07→18:53)
[2019-10-21 05:26] LABS: Anion Gap 11 mmol/L (10-20); BUN (Urea Nitrogen) 7 mg/dL (9.8-20.1); Calc. Creatinine Clearance 101 mL/min (70-130); Calcium 7.9 mg/dL (7.8-10.44); Carbon Dioxide 28 mmol/L (23-31); Chloride 104 mmol/L (98-107); Estimated GFR-MDRD 88; Glucose 93 mg/dL (80-115); Potassium 3.9 mmol/L (3.5-5.1); Sodium 139 mmol/L (136-145)
[2019-10-21 06:13] LABS: #Eosinphils 0.3 thou/uL (0.0-0.7); #Lymphocytes 1.3 thou/uL (1.20-3.40); #Monocytes 0.5 thou/uL (0.11-0.59); %Basophils 0.4 % (0.0-1.0); %Eosinophils 3.1 % (0.0-10.0); %Lymphocytes 14.5 % (21.0-51.0); Hemoglobin 10.4 g/dL (12.0-16.0); Mean Corpuscular HGB CONC 31.1 g/dL (32.0-36.0); Mean Corpuscular Hemoglobin 29.9 pg (27.0-31.0); Mean Corpuscular Volume 96.2 fL (78.0-98.0); Mean Platelet Volume 7.9 fL (7.4-10.4); Platelet Count 150 thou/uL (130-400); RBC Distribution Width 13.1 % (11.5-14.5); Red Blood Cell (RBC) Count 3.46 mill/uL (4.20-5.40); White Blood Cell (WBC) Count 9.1 thou/uL (4.8-10.8)
[2019-10-21] MEDS: Docusate 100 MG CAP PO SCH ×2 (08:55→20:36)
--- NOTE | 2019-10-21 16:54 | CON ---
DATE OF CONSULTATION: 10/21/2019 CHIEF COMPLAINT: Status post left nephrectomy. HISTORY OF PRESENT ILLNESS: Ms. Isi Stokes is a very pleasant 69-year-old female patient of Dr. Sushant Alamo, who underwent a left nephrectomy on 10/18/2019. She is recovering from the operation now, is on a surgical floor. She still has an epidural for pain control and is reporting that her pain control is good. She is having moderate return of her GI function with some bowel sounds today and feeling hungry. She is desiring to be advanced to a regular diet, which we think is reasonable. There has been no interval overnight events. PHYSICAL EXAMINATION: VITAL SIGNS: Temperature 99.2, pulse is 76, respirations 18, O2 saturation on room air is 98%, blood pressure is 139/76. HEAD, EYES, EARS, NOSE, AND THROAT: Extraocular movements are intact. Sclerae anicteric. Oropharynx is clear. NECK: Supple. LUNGS: Clear to auscultation bilaterally. There are some few posterior crackles heard in the base. ABDOMEN: Soft, obese, and nontender. There is left-sided flank incisional scar, which is dressed. A SERG drain is in place which is draining bloody fluid. This is not a large amount. GENITOURINARY: Indwelling Mackenzie catheter remains in place, is draining clear urine. For I's and O's, patient has had a total of 135 mL out of her left flank drain in the last 24 hours and just about 3750 mL of urine in the last 48 hours out of her Mackenzie. She is in diuresis phase. ASSESSMENT AND PLAN: 1. Status post nephrectomy, postoperative day 3 and doing well. She is slowly improving. 2. Gastrointestinal, patient has partial ileus, which is tolerating clears, wants to be advanced to a regular diet. I think that is reasonable. The patient has negative flatus and negative bowel movements so far. 3. SERG drain is draining grossly bloody fluid. Borderline output for the last 24 hours is somewhere in the neighborhood of 135 mL. 4. Indwelling Mackenzie catheter. The patient's epidural is remaining in place today and probably will be removed on Tuesday. The patient will undergo a voiding trial after removal of the epidural. 5. Pain control. The patient reports good pain control on her epidural. Job ID: [id number]
[2019-10-21] MEDS: fentaNYL Citrate/PF 500 MCG, Bupivacaine 10 ML in Sodium Chloride 0.9% 80 ML EPIDURAL SCH (18:53)
[2019-10-21] MEDS: Enoxaparin Sodium 40 MG/0.4 ML SYRINGE SC SCH (20:36)
[2019-10-21] MEDS: Magnesium Oxide 400 MG TAB PO SCH (20:36)
[2019-10-21] MEDS: Simvastatin 5 MG TAB PO SCH (20:36)
[2019-10-21] MEDS: Gabapentin 300 MG CAP PO SCH (20:36)
[2019-10-22 05:04] LABS: #Eosinphils 0.3 thou/uL (0.0-0.7); #Lymphocytes 1.9 thou/uL (1.20-3.40); #Monocytes 0.5 thou/uL (0.11-0.59); #Neutrophils 6.3 thou/uL (1.40-6.50); %Basophils 0.3 % (0.0-1.0); %Eosinophils 3.7 % (0.0-10.0); %Lymphocytes 21.2 % (21.0-51.0); %Monocytes 5.6 % (0.0-10.0); %Neutrophils 69.2 % (42.0-75.0); Hemoglobin 9.3 g/dL (12.0-16.0); Mean Corpuscular Hemoglobin 30.5 pg (27.0-31.0); Mean Corpuscular Volume 95.1 fL (78.0-98.0); Mean Platelet Volume 7.4 fL (7.4-10.4); Platelet Count 161 thou/uL (130-400); RBC Distribution Width 12.6 % (11.5-14.5); Red Blood Cell (RBC) Count 3.05 mill/uL (4.20-5.40); White Blood Cell (WBC) Count 9.1 thou/uL (4.8-10.8)
[2019-10-22 05:21] LABS: Anion Gap 8 mmol/L (10-20); BUN (Urea Nitrogen) 10 mg/dL (9.8-20.1); Calc. Creatinine Clearance 95 mL/min (70-130); Calcium 7.9 mg/dL (7.8-10.44); Carbon Dioxide 33 mmol/L (23-31); Chloride 103 mmol/L (98-107); Estimated GFR-MDRD 82; Glucose 104 mg/dL (80-115); Potassium 3.5 mmol/L (3.5-5.1); Sodium 140 mmol/L (136-145)
--- NOTE | 2019-10-22 09:03 | PRG ---
DATE OF SERVICE: 10/22/2019 SUBJECTIVE: The patient states that she is doing relatively well today. Her pain is relatively well controlled. Her SERG has stopped working as there is air in the line. It is no longer putting out much fluid. Her epidural was not removed over the weekend, but she states her pain is relatively well controlled. She did get a suppository over the weekend as well, which resulted in loose stools. She also has her appetite and has been eating a regular diet. She denies any chest pain or shortness of breath. OBJECTIVE: VITAL SIGNS: Temperature 98.4, pulse 70, respirations 16, blood pressure 124/74, and saturation 95% on room air. GENERAL: No apparent distress, communicative and alert. CARDIOVASCULAR: Regular rate and rhythm. ABDOMEN: Soft, nontender, and nondistended. Positive bowel sounds. Incision is clean, dry, and intact. SERG, serosanguineous. : Mackenzie catheter in place with clear yellow urine. EXTREMITIES: No clubbing, cyanosis or edema. LABORATORY DATA: The full set of labs are in the [facility] system, which I have reviewed. Of note, the patient's white count is 9.1, hemoglobin 9.3, and creatinine of 0.84. ASSESSMENT AND PLAN: This is a 69-year-old black female, status post left open nephrectomy postop day #4, recovering quite well. I do think that her epidural can be removed now. She states her pain is well controlled. Her basal rate is quite low. I would like her epidural to be removed today. Once her epidural was out, I think we can remove her Mackenzie catheter about a few hours afterwards. I will go ahead and remove her SERG drain out, which should help with her pain control as well. Continue regular diet. The patient should ambulate as much as possible, especially once her epidural was removed to help increase strength in her legs and facilitate her discharge. Discharge will not be planned until she is controlled on oral pain medications and all other factors are satisfied. Job ID: [id number]
[2019-10-22] MEDS: Docusate 100 MG CAP PO SCH ×2 (09:19→20:48)
[2019-10-22] MEDS ORDERED: Acetaminophen 325 MG TAB PO PRN (11:51)
[2019-10-22] MEDS: HYDROcodone/Acetaminophen 5/325 mg Tablet PO PRN ×4 (12:34→18:24)
[2019-10-22] MEDS: Enoxaparin Sodium 40 MG/0.4 ML SYRINGE SC SCH (20:47)
[2019-10-22] MEDS: Magnesium Oxide 400 MG TAB PO SCH (20:48)
[2019-10-22] MEDS: Simvastatin 5 MG TAB PO SCH (20:48)
[2019-10-22] MEDS: Gabapentin 300 MG CAP PO SCH (20:48)
[2019-10-23] MEDS: Docusate 100 MG CAP PO SCH (09:13)
[2019-10-23] MEDS: HYDROcodone/Acetaminophen 5/325 mg Tablet PO PRN ×4 (11:02→15:06)
[2019-10-23 14:56] VITALS: BP 138/77; TEMP 98.4
--- NOTE | 2019-10-23 18:42 | PRG ---
DATE OF SERVICE: 10/23/2019 SUBJECTIVE: The patient states she is feeling much better today. Her epidural was removed yesterday. Her Mackenzie catheter is being removed today. She denies any chest pain or shortness of breath. She has been up walking. She is tolerating a diet well. She has not had a bowel movement, but is passing flatus. She has no nausea, vomiting, or abdominal pain. OBJECTIVE: VITAL SIGNS: Temperature 98.4, pulse 55, respirations 16, blood pressure 138/77, saturation 98% on room air. GENERAL: No apparent distress. Communicative and alert. CARDIOVASCULAR: Regular rate and rhythm. ABDOMEN: Soft, nontender, and nondistended. Positive bowel sounds. Incision is clean, dry, and intact. : Mackenzie catheter was removed. EXTREMITIES: No edema. ASSESSMENT AND PLAN: A 69-year-old black female, status post left open nephrectomy, postoperative day #5, recovered very well. I think she is able to be discharged home at this time. I will send in prescriptions for [place] and tramadol, initially to use [place] and then tramadol. I have gone over her postoperative instructions including activity restrictions, driving restrictions, and so forth. She knows when she needs to call me. Her followup has been set up and I will continue with surveillance on an outpatient basis. Job ID: [id number]
--- NOTE | 2019-10-24 05:35 | DIS ---
DATE OF ADMISSION: 10/18/2019 DATE OF DISCHARGE: 10/23/2019 ADMITTING DIAGNOSIS: Left renal cell carcinoma. DISCHARGE DIAGNOSIS: Left renal cell carcinoma. PROCEDURE PERFORMED WHILE INPATIENT: Left retroperitoneal laparoscopic converted to open radical nephrectomy. BRIEF HISTORY: Mrs. Stokes is a 69-year-old black female with a history of a left renal mass and an atrophic kidney. Functional studies showed that the kidney was nonfunctional. A biopsy was performed, which demonstrated that this was Benjamin grade 1 renal cell carcinoma on the left. She is now coming in for an open nephrectomy. The full H and P can be found in the scanned portion of the [employer] system. HOSPITAL COURSE: After her surgery (please see operative note for details), the patient was admitted to the hospital for postoperative recovery. She had an epidural and Mackenzie catheter in place. She was kept on IV fluids overnight with postoperative antibiotics with Ancef x3 doses. She did have a SERG drain, which was left in secondary to an atrophic kidney with some fluid around it, which was concerned for a possible chronic infection. The drain did not put out significant amounts of fluid over the next few days, it then subsequently got an air leak, at which point it was removed. The patient was kept with her epidural until postoperative day #4, at which point it was removed. Her pain was able to be controlled with Deridder and tramadol. On postop day #1, she did have an episode of respiratory suppression secondary to high narcotic usage. This resolved with decreasing her narcotic usage and lowering her epidural dose and increasing her Tylenol usage rather than narcotics. She had no further episodes of hypoxia or shortness of breath thereafter. Once her epidural was removed, her Mackenzie catheter was removed, at which point she began spontaneous voiding with no hematuria. Her diet was advanced starting on postoperative day #1 to clear liquids and then progressively to a regular diet, which she tolerated well. Her labs remained stable with a stable hemoglobin and normal creatinine throughout her hospitalization. At the time of her discharge, she was able to ambulate on her own. She had no breathing problems, chest pain, or shortness of breath. Her pain was controlled on pain medications alone. Her epidural and catheters were out. Her IVs were removed and she was discharged home without further issues. DISPOSITION: Discharged to home. DISCHARGE CONDITION: Good. DISCHARGE MEDICATIONS: The patient will resume all of her home medications. She will be given additional prescriptions for tramadol and Deridder for pain control as well as Colace for stool softening. DISCHARGE INSTRUCTIONS: Include no heavy lifting over 20 pounds or strenuous activity for [address] should not drive for 2 weeks and she should not submerge under water for at least 3 to 4 weeks. I will see her back next week for followup for postop check. Job ID: [id number]
--- NOTE | 2019-10-26 10:15 | PQF ---
CARLOS ALBERTO HERNANDEZ ROBIN MD [id number] SURG B- [id number] CLINICAL DOCUMENTATION CLARIFICATION FORM: POST DISCHARGE Addendum to original discharge summary date: ____ Late entry note date: __ DATE: 10/26/2019 ATTN: Sushant Alamo Please exercise your independent, professional judgment in responding to the clarification form. Clinical indicators are provided on the bottom of this form for your review Please check appropriate box(s): [ ] Hypovolemic Shock [ ] Hypotensive shock [ ] Hemorrhagic Shock due to surgery: [ ] Shock Unspecified [ ] Acute blood loss anemia only [ X] Other diagnosis __excessive narcotic usage [ ] Unable to determine In addition, please specify: Present on Admission (POA): [ ] Yes [ ] No [ ] Unable to determine For continuity of documentation, please document condition throughout progress notes and discharge summary. Thank You. CLINICAL INDICATORS - SIGNS / SYMPTOMS / LABS "low blood pressure and shortness of breath" - PN 10/18 Dr. Alamo "dizzy and lightheaded" - PN 10/19 Dr. Alamo "recommend giving her another bolus of fluid to increase her blood pressure" - PN 10/18 Dr. Alamo BP: 10/18 - 87/52, 10/19 - 95/55, 10/20 - 96/54 - VS flowsheet Pulse: 10/18 - 58, 10/19 - 56, 10/20 - 56, 10/22 - - VS flowsheet Hgb: 10/17 - 11.6, 10/18 - 11.1, 10/19 - 9.6, 10/20 - 10.4, 10/21 - 9.3 - Labs Hct: 10/19 - 29.7, 10/20 - 33.3, 10/21 - Labs RISK FACTORS s/p Left retroperitoneal laparoscopic nephrectomy converted to open retriperitoneal nephrectomy - Op Note 10/17 Dr. Alamo Left renal cell carcinoma - Op Note 10/17 Dr. Alamo 69 years old - PN 10/18 Dr. Alamo TREATMENTS: Sodium Chloride NS IV 1000mL - JUL 25 - 10/18 Sodium Chloride NS IV 500mL - JUL 25 (This form is maintained as a part of the permanent medical record) 2014 [employer], [employer] All Rights Reserved [email or web address]
== END 2019-10-23 18:25 | disposition home or self-care (01) | DRG 657 ==
LOC: SURG A 10-18 05:54 → SURG B 10-18 15:47
PROVIDERS: ADMIT Urology; ATTEND Urology
PROC: 0TJ54ZZ Inspection of Kidney, Percutaneous Endoscopic Approach (ICD-10-PCS; principal; 2019-10-18)
PROC: 0TT10ZZ Resection of Left Kidney, Open Approach (ICD-10-PCS; 2019-10-18)
PROC: 0TB70ZZ Excision of Left Ureter, Open Approach (ICD-10-PCS; 2019-10-18)
DX: C64.2 Malignant neoplasm of left kidney, except renal pelvis (principal); K56.7 Ileus, unspecified; N26.1 Atrophy of kidney (terminal); I95.9 Hypotension, unspecified; R06.02 Shortness of breath; Z11.59 Encounter for screening for other viral diseases; Z53.31 Laparoscopic surgical procedure converted to open procedure; T40.605A Adverse effect of unspecified narcotics, initial encounter
CPT/HCPCS: 36415; 36600; 71045; 71046; 80048; 81001; 85025; 85027; 85610; 85730; 86850; 86900; 86901; 87077; 87086; 87635; 88307; 93005; C1727; J0171; J0690; J1650; J2001; J2250; J2370; J2405; J2704; J3010; J3490; Q0163; S0020; U0003

== ENCOUNTER 2019-08-10 10:05 | Outpatient (CLI) | payer MEDICARE ==
--- NOTE | 2019-08-10 10:53 | RAD ---
EXAM: Chest PA and lateral: HISTORY: Preop COMPARISON: none FINDINGS: Lung lozano are clear. Vascular markings are normal. Heart and mediastinum appear unremarkable. Osseous structures are unremarkable. IMPRESSION: Unremarkable chest
[2019-08-10 10:58] LABS: Hemoglobin 12.2 g/dL (12.0-16.0); Mean Corpuscular HGB CONC 32.4 g/dL (32.0-36.0); Mean Corpuscular Hemoglobin 29.1 pg (27.0-31.0); Mean Corpuscular Volume 89.6 fL (78.0-98.0); Mean Platelet Volume 7.2 fL (7.4-10.4); Platelet Count 198 thou/uL (130-400); RBC Distribution Width 13.2 % (11.5-14.5); Red Blood Cell (RBC) Count 4.21 mill/uL (4.20-5.40); White Blood Cell (WBC) Count 8.6 thou/uL (4.8-10.8)
[2019-08-10 11:04] LABS: PTT 27.5 SEC (22.9-36.1)
[2019-08-10 11:04] LABS: Bilirubin Negative (Negative); Blood, Urine Negative (Negative); Clarity Clear (Clear); Glucose, Urine (Dipstick) Normal (Negative); Leukocyte Negative Leu/uL (Negative); Nitrite Negative (Negative); Protein, Urine (Dipstick) 20 mg/dL (Neg-Trace); RBC/HPF 0-3 HPF (0-3); Urobilinogen Normal mg/dL (Less than 2); WBC/HPF 0-3 HPF (0-3)
[2019-08-10 11:05] LABS: Prothrombin Time 12.7 SEC (12.0-14.7)
[2019-08-10 11:08] LABS: Bacteria/HPF 1+ HPF (None Seen)
[2019-08-10 11:20] LABS: Anion Gap 13 mmol/L (10-20); BUN (Urea Nitrogen) 16 mg/dL (9.8-20.1); Calc. Creatinine Clearance 0 mL/min (70-130); Calcium 9.2 mg/dL (7.8-10.44); Carbon Dioxide 29 mmol/L (23-31); Chloride 102 mmol/L (98-107); Estimated GFR-MDRD 70; Glucose 102 mg/dL (80-115); Potassium 3.7 mmol/L (3.5-5.1); Sodium 140 mmol/L (136-145)
--- NOTE | 2019-08-10 15:58 | EKG ---
Test Reason : Blood Pressure : / mmHG Vent. Rate : 051 BPM Atrial Rate : 051 BPM P-R Int : 154 ms QRS Dur : 082 ms QT Int : 444 ms P-R-T Axes : 037 004 -10 degrees QTc Int : 409 ms Sinus bradycardia Nonspecific T wave abnormality Abnormal ECG When compared with ECG of 02-NOV-1996 12:58, Inverted T waves have replaced nonspecific T wave abnormality in Inferior leads Nonspecific T wave abnormality now evident in Anterior leads Confirmed by IVONNE MOULTON, DR. Linares ([id number]) on 08/10/2019 3:58:07 PM Referred By: SAMEERA Confirmed By:DR. Vijay CORONADO MD
== END 2019-08-10 10:06 | disposition home or self-care (01) ==
LOC: LABBT 10:05
PROVIDERS: ATTEND Urology
DX: Z01.818 Encounter for other preprocedural examination (principal); C64.2 Malignant neoplasm of left kidney, except renal pelvis
CPT/HCPCS: 71046; 80048; 81001; 85027; 85610; 85730; 87086; 93005; 93010

== ENCOUNTER 2019-10-16 07:01 | Outpatient (CLI) | payer MEDICARE, OTHER ==
--- NOTE | 2019-10-16 10:31 | RAD ---
EXAM: Two views chest PROVIDED CLINICAL HISTORY: Preoperative evaluation. COMPARISON: 08/10/2019 FINDINGS: Cardiac silhouette is mildly enlarged. The pulmonary vasculature is within normal limits. The lungs a re clear. Vascular calcifications are seen in the thoracic aorta. Surgical clips overlie the right upper quadrant. There has been no interval change compared to prior exam. IMPRESSION: 1. Mild cardiomegaly. 2. No acute cardiopulmonary process..
== END 2019-10-16 07:02 | disposition home or self-care (01) ==
LOC: LABBT 07:01
PROVIDERS: ATTEND Urology
DX: Z01.818 Encounter for other preprocedural examination (principal); C64.2 Malignant neoplasm of left kidney, except renal pelvis
CPT/HCPCS: 71046; 93005; 93010

== ENCOUNTER 2020-04-28 09:15 | Outpatient (CLI) | payer MEDICARE ==
--- NOTE | 2020-04-28 09:39 | RAD ---
XR Lumbar Spine 2 Or 3 View: 04/28/2020 12:00 AM INDICATION: Low back pain with left-sided radiculopathy COMPARISON: Prior exam dated April 29, 2018 FINDINGS: Fracture: None. Alignment: There is stable grade 1 anterolisthesis of L4 and L5. Degenerative Change: There is moderate disc degenerative disease at L4-5. There is mild disc degener ative disease at L2-3, L3-4 and L5-S1. There is moderate facet joint degenerative change at L4-5. Bone Mineralization:Normal Soft tissues: There are mild vascular calcifications seen involving the visualized vasculature. IMPRESSION: Stable mild to moderate lumbar spondylosis.
== END 2020-04-28 09:16 | disposition home or self-care (01) ==
LOC: RAD 09:15
PROVIDERS: ATTEND Family Medicine
DX: M47.26 Other spondylosis with radiculopathy, lumbar region (principal); Z85.528 Personal history of other malignant neoplasm of kidney
CPT/HCPCS: 72100

== ENCOUNTER 2020-09-08 08:50 | Outpatient (CLI) | payer MEDICARE | END 2020-09-08 08:51 | disposition home or self-care (01) | LOC: BICCT 08:50 | PROVIDERS: ATTEND Urology | DX: C64.2 Malignant neoplasm of left kidney, except renal pelvis (principal) | CPT/HCPCS: 71046; 74170; 82565 ==

== ENCOUNTER 2020-10-17 09:14 | Outpatient (CLI) | payer MEDICARE | END 2020-10-17 09:15 | disposition home or self-care (01) | LOC: BICMAMMO 09:14 | PROVIDERS: ATTEND Family Medicine | DX: Z12.31 Encounter for screening mammogram for malignant neoplasm of breast (principal); Z85.71 Personal history of Hodgkin lymphoma | CPT/HCPCS: 77063; 77067 ==

== ENCOUNTER 2021-09-15 08:51 | Outpatient (CLI) | payer MEDICARE | END 2021-09-15 08:52 | disposition home or self-care (01) | LOC: RAD 08:51 | PROVIDERS: ATTEND Urology | DX: C64.2 Malignant neoplasm of left kidney, except renal pelvis (principal); I51.7 Cardiomegaly | CPT/HCPCS: 71046 ==

== ENCOUNTER 2021-10-06 09:57 | Outpatient (CLI) | payer MEDICARE | END 2021-10-06 09:58 | disposition home or self-care (01) | LOC: RAD 09:57 | PROVIDERS: ATTEND Family Medicine | DX: M54.50 Low back pain, unspecified (principal); M47.816 Spondylosis without myelopathy or radiculopathy, lumbar region | CPT/HCPCS: 72100 ==

== ENCOUNTER 2021-10-20 09:20 | Outpatient (CLI) | payer MEDICARE | END 2021-10-20 09:21 | disposition home or self-care (01) | LOC: BICMAMMO 09:20 | PROVIDERS: ATTEND Family Medicine | DX: Z12.31 Encounter for screening mammogram for malignant neoplasm of breast (principal); Z85.71 Personal history of Hodgkin lymphoma | CPT/HCPCS: 77063; 77067 ==

== ENCOUNTER 2022-01-28 09:16 | Outpatient (CLI) | payer MEDICARE | END 2022-01-28 09:17 | disposition home or self-care (01) | LOC: BICMAMMO 09:16 | PROVIDERS: ATTEND Family Medicine | DX: Z13.820 Encounter for screening for osteoporosis (principal); N95.9 Unspecified menopausal and perimenopausal disorder; M85.851 Other specified disorders of bone density and structure, right thigh; M85.852 Other specified disorders of bone density and structure, left thigh | CPT/HCPCS: 77080 ==

== ENCOUNTER 2023-01-27 07:39 | Outpatient (CLI) | payer MEDICARE | END 2023-01-27 07:40 | disposition home or self-care (01) | LOC: BICULT 07:39 | PROVIDERS: ATTEND Internal Medicine Nephrology | DX: N18.30 Chronic kidney disease, stage 3 unspecified (principal); Z90.5 Acquired absence of kidney | CPT/HCPCS: 76770 ==

== ENCOUNTER 2023-11-07 10:25 | Outpatient (CLI) | payer MEDICARE | END 2023-11-07 10:26 | disposition home or self-care (01) | LOC: BICRAD 10:25 | PROVIDERS: ATTEND Urology | DX: C64.2 Malignant neoplasm of left kidney, except renal pelvis (principal) | CPT/HCPCS: 36415; 71046; 80048; 81001 ==

== ENCOUNTER 2024-06-12 13:43 | Outpatient (CLI) | payer MEDICARE | END 2024-06-12 13:44 | disposition home or self-care (01) | LOC: RAD 13:43 | PROVIDERS: ATTEND Nurse Practitioner Family | DX: M25.511 Pain in right shoulder (principal); M19.011 Primary osteoarthritis, right shoulder ==